=== PATIENT | female | born 1985 ===

== ENCOUNTER 2022-06-01 13:15 | Inpatient (IN) | payer OTHER ==
[~2022-06-01] VITALS: Ht 162.6 cm; Wt 73.0 kg
[2022-06-15] MEDS ORDERED: PRENATAL CAPLE1 EAC1 PO (13:01)
[2022-06-15] MEDS ORDERED: PEPCID20 MG PO (13:01)
== END 2022-06-17 15:43 | disposition home or self-care (01) | DRG 807 ==
LOC: LDR 06-15 12:59 → OB/GYN 06-15 19:50
PROVIDERS: ADMIT Obstetrics & Gynecology; ATTEND Obstetrics & Gynecology
PROC: 10E0XZZ Delivery of Products of Conception, External Approach (ICD-10-PCS; principal; 2022-06-15)
PROC: 0W8NXZZ Division of Female Perineum, External Approach (ICD-10-PCS; 2022-06-15)
PROC: 0UQG7ZZ Repair Vagina, Via Natural or Artificial Opening (ICD-10-PCS; 2022-06-15)
PROC: 0UQMXZZ Repair Vulva, External Approach (ICD-10-PCS; 2022-06-15)
PROC: 4A1HXCZ Monitoring of Products of Conception, Cardiac Rate, External Approach (ICD-10-PCS; 2022-06-15)
DX: O70.0 First degree perineal laceration during delivery (principal); Z3A.39 39 weeks gestation of pregnancy; Z37.0 Single live birth; Z20.822 Contact with and (suspected) exposure to COVID-19

== ENCOUNTER 2022-06-01 14:16 | Outpatient (CLI) | payer OTHER | END 2022-06-01 15:08 | disposition home or self-care (01) | LOC: NST 14:16 | PROVIDERS: ATTEND Obstetrics & Gynecology Maternal & Fetal Medicine | DX: Z34.83 Encounter for supervision of other normal pregnancy, third trimester (principal) ==

== ENCOUNTER 2022-06-14 11:19 | Outpatient (CLI) | payer OTHER ==
[2022-06-15] MEDS ORDERED: PEPCID20 MG PO (13:01)
[2022-06-15] MEDS ORDERED: PRENATAL CAPLE1 EAC1 PO (13:01)
== END 2022-06-14 12:05 | disposition home or self-care (01) ==
LOC: NST 11:19
PROVIDERS: ATTEND Obstetrics & Gynecology
DX: Z34.83 Encounter for supervision of other normal pregnancy, third trimester (principal)